=== PATIENT | female | born 1990 | race Caucasian/White ===

== ENCOUNTER 2021-05-02 18:38 | Emergency (ER) | payer BC ==
--- NOTE | 2021-05-02 20:07 | EDM.PDOC ---
ED HPI GENERAL MEDICAL PROBLEM - General Chief Complaint: Lower Extremity Injury/Pain Stated Complaint: LOWER BACK,RIGHT HIP PER PT Time Seen by Provider: 05/02/21 20:03 Source of Information: Reports: Patient History Limitations: Reports: No Limitations - History of Present Illness INITIAL COMMENTS - FREE TEXT/NARRATIVE: 30 y/o F c/o R hip pain after slipping and fall on the ice outside [facility]. Pt reports she slipped fell backwards and landed on her R hip. THe pain is tolerable 3/10 radiates from R hip to R knee. Hx of legg calf perthes as a child. Denies loc, ctls pain, flank pain, other ext pain, drugs, etoh. Right Hip Pain Score (Numeric/FACES): 4 - Related Data Allergies Allergy/AdvReac Type Severity Reaction Status Date / Time cefixime [From Suprax] Allergy Unknown Other Verified 05/02/21 19:58 codeine Allergy Unknown Other Verified 05/02/21 19:58 Home Meds: Home Meds Dextroamphetamine/Amphetamine [Adderall 20 mg Tablet] 20 mg PO DAILY 05/02/21 [History] Escitalopram Oxalate [Lexapro] 10 mg PO DAILY 05/02/21 [History] Past Medical History Psychiatric History: Reports: Suicide Attempt, Suicidal Ideation Social & Family History - Tobacco Use Tobacco Use Status *Q: Never Tobacco User - Caffeine Use Caffeine Use: Reports: Coffee, Tea - Recreational Drug Use Recreational Drug Use: No Review of Systems - Review of Systems Review Of Systems: Comprehensive ROS is negative, except as noted in HPI. ED EXAM, GENERAL - Physical Exam Exam: See Below Exam Limited By: No Limitations General Appearance: Alert, No Apparent Distress Respiratory/Chest: No Respiratory Distress, Lungs Clear, Normal Breath Sounds, No Accessory Muscle Use, Chest Non-Tender Cardiovascular: Normal Peripheral Pulses, Regular Rate, Rhythm, No Edema, No Gallop, No JVD, No Murmur, No Rub Peripheral Pulses: 2+: Posterior Tibial (L), Posterior Tibial (R), Dorsalis Pedis (L), Dorsalis Pedis (R) GI/Abdominal: Soft, Non-Tender Back Exam: Normal Inspection, Full Range of Motion, NT Extremities: Other (R hip tender to palpation no obvious deformity . NO ecchymosis or erythema. ) Course - Vital Signs Last Recorded V/S: Last Vital Signs Temp 99.1 F 05/02/21 19:56 Pulse 92 05/02/21 19:56 Resp 20 05/02/21 19:56 BP 131/87 05/02/21 19:56 Pulse Ox 100 05/02/21 19:56 - Re-Assessments/Exams Free Text/Narrative Re-Assessment/Exam: 05/02/21 20:42 I discussed the exam and xray with the pt and explained the results. I discussed with her about using tylenol and Ibuprofen for pain managment and instructed her to follow up with her PCP fi her symptoms do not improve by the end of next week. Departure - Departure Time of Disposition: 20:44 Disposition: Home, Self-Care 01 Condition: Good Clinical Impression: Right hip pain - Discharge Information *PRESCRIPTION DRUG MONITORING PROGRAM REVIEWED*: Not Applicable *COPY OF PRESCRIPTION DRUG MONITORING REPORT IN PATIENT SABINE: Not Applicable Forms: ED Department Discharge Additional Instructions: Use Tylenol and Ibuprofen for pain as needed. If your symptoms do not improve by the end of next week contact your primary care facility. If any new symptoms or concerns develop contact your primary care facility or return to the ER. Sepsis Event Note (ED) - Evaluation Sepsis Screening Result: No Definite Risk - Focused Exam Vital Signs: Vital Signs Temp Pulse Resp BP Pulse Ox 05/02/21 19:56 99.1 F 92 20 131/87 100
--- NOTE | 2021-05-02 20:38 | CR ---
PROCEDURE INFORMATION: Exam: XR Right Hip Exam date and time: 05/02/2021 8:07 PM Age: 30 years old Clinical indication: Other: Fall R hip pain TECHNIQUE: Imaging protocol: XR Right hip. Views: 1 view hip with pelvis when performed. COMPARISON: No relevant prior studies available. FINDINGS: Bones/joints: Irregular morphology to the right femoral head and neck. Subtle linear lucencies at the inferior right acetabulum and ileal ischial line. No other acutely displaced fractures are identified. There is no evidence of joint dislocation. No aggressive osseous lesions. Soft tissues: No significant soft tissue swelling is noted. IMPRESSION: 1. Irregular morphological appearance to the right femoral head/neck, favoring chronic dysplastic changes. 2. Findings at the right ileal ischial line, seen on the AP view, could be related to artifact however difficult to exclude minimally displaced fractures. Consider correlation with noncontrast right hip CT if clinically warranted.
== END 2021-05-02 21:05 | disposition home or self-care (01) ==
LOC: DL.ED 18:38
DX: M25.551 Pain in right hip (principal); Z88.1 Allergy status to other antibiotic agents; Z88.5 Allergy status to narcotic agent
CPT/HCPCS: 99283-25

== ENCOUNTER 2024-06-13 07:16 | Emergency (ER) | payer BC ==
[2024-06-13 07:47] LABS: APPEARANCE,URINE SLIGHTLY CLOUDY (CLEAR); BILIRUBIN,URINE NEGATIVE (NEGATIVE); COLOR,URINE YELLOW (YELLOW); GLUCOSE,URINE NEGATIVE (NEGATIVE); KETONES,URINE NEGATIVE (NEGATIVE); LEUKOCYTE ESTERASE,URINE SMALL (NEGATIVE); NITRITE,URINE NEGATIVE (NEGATIVE); OCCULT BLOOD,URINE LARGE (NEGATIVE); PH,URINE 6.5 (5.0-9.0); PROTEIN,URINE TRACE (NEGATIVE); UROBILINOGEN,URINE 0.2 mg/dL (0.2-1.0)
[2024-06-13 08:15] LABS: BACTERIA,URINE MODERATE /HPF (0-FEW/HPF); EPITHELIAL CELLS,URINE MANY /HPF (NOT SEEN); MUCUS,URINE FEW /LPF (NOT SEEN)
[2024-06-13 08:16] LABS: YEAST,URINE RARE /HPF (NOT SEEN)
== END 2024-06-13 09:03 | disposition home or self-care (01) ==
LOC: DL.ED 07:16
DX: O20.9 Hemorrhage in early pregnancy, unspecified (principal); O34.41 Maternal care for other abnormalities of cervix, first trimester; Z88.5 Allergy status to narcotic agent; Z88.8 Allergy status to other drugs, medicaments and biological substances; Z79.899 Other long term (current) drug therapy; Z3A.13 13 weeks gestation of pregnancy
CPT/HCPCS: 36415; 81001; 86850; 86900; 86901; 87086; 87210; 99283; 99284

== ENCOUNTER 2024-06-13 21:47 | Emergency (ER) | payer BC | END 2024-06-14 00:06 | disposition home or self-care (01) | LOC: DL.ED 21:47 | DX: O65.5 Obstructed labor due to abnormality of maternal pelvic organs (principal); O34.41 Maternal care for other abnormalities of cervix, first trimester; Z3A.11 11 weeks gestation of pregnancy; Z88.5 Allergy status to narcotic agent; Z88.8 Allergy status to other drugs, medicaments and biological substances; Z79.899 Other long term (current) drug therapy | CPT/HCPCS: 36415; 81001; 86850; 86900; 86901; 87086; 87210; 99283; 99284 ==